=== PATIENT | female | born 1950 | race Caucasian/White ===

== ENCOUNTER 2017-05-21 15:00 | Emergency (ER) | payer MEDICARE, OTHER ==
[~2017-05-21] VITALS: Ht 154.9 cm; Wt 78.2 kg
[2017-05-21 15:34] VITALS: BP 171/89; PULSE 96; RESP 18; O2SAT 98
[2017-05-21 16:04] LABS: BASOPHILS % (AUTO) 0.1 % (0-3); EOSINOPHILS % (AUTO) 0.5 % (0-5); MONOCYTES % (AUTO) 7.1 % (4-12); Mean Corpuscular Hemoglobin 31.8 pg (27.0-35.0); NEUTROPHILS % (AUTO) 70.2 % (40-74); Platelet Count 175 bil/L (150-400)
[2017-05-21 16:54] LABS: TROPONIN T < 0.010 ug/L (0.0-0.011)
[2017-05-21 17:43] VITALS: BP 158/78; PULSE 85; RESP 20
--- NOTE | 2017-05-21 18:13 | ED.REPORT ---
HPI-Abd Pain F 40 and Over Date of Service May 21, 2017 ED Provider: Eros Liu MD Pt is a 67 y/o female w/ a hx of HTN, HLD, presenting to the ED c/o abdominal pain onset 3 days ago. She has been experiencing numbness/tingling of the pelvic region for a while and about 3 days ago she began to experience suprapubic abdominal pain which she thought to be related to a UTI. She had a urine culture resulted as negative. She has now been experiencing increasing diffuse abdominal cramping for 3 days. The patient's sister was recently diagnosed with stage IV colon cancer which made her concern even more-so for her symptoms. Pt denies fever, chills, diaphoresis, nausea, vomiting, abnormal diarrhea, dysuria, SOB, CP. She has never experienced similar symptoms previously. The patient had a colonoscopy 15 years ago. Her only surgery was a uterine fibroid removal. Nursing Notes Stated Complaint: STOMACH & BACK PAIN Chief Complaint: Female Abdominal Pain Nursing Notes Reviewed: Yes (Myze, [employer] not reconcled) Allergies: Coded Allergies: Penicillins (Verified Allergy, Unknown, 05/21/17) Scheduled PRN Alprazolam (Alprazolam) 0.5 Mg Tablet 0.5 MG PO BID PRN PRN For Anxiety General Time Seen by MD: 18:12 Chief Complaint Abdominal pain Hx Obtained From: Patient Arrived By: Walk-in Sudden in Onset?: No Onset Occurred: 3 days ago Symptom Duration: Since onset Progression since Onset: Constant Location: : Diffuse Quality: Cramping, Painful Severity: Current: Moderate Severity: Maximum: Moderate Similar Sx Previous: No Past Medical History Past Medical History Diabetes Hypertension Edema Otherwise denies Past Surgical History Uterine fibroid tumor removal Smoking History Never Smoker Social History Alcohol Use: Denies alcohol use Ambulatory Status Independent Review of Systems Constitutional: Denies: Chills, Fever Respiratory: Denies: Non-productive cough, Shortness of breath Cardiovascular: Denies: Chest pain GI: Reports: Abdominal pain, Denies: Diarrhea, Nausea, Vomiting Female: Reports: Pelvic pain, Denies: Dysuria, Flank pain Complete sys rev & neg: except as marked. Skin: Denies Diaphoresis Physical Exam Vital Signs Vital Signs (First) Date Time Temp Pulse Resp B/P Pulse Ox O2 Delivery O2 Flow Rate FiO2 05/21/17 15:34 36.8 96 18 171/89 98 05/21/17 17:43 Room Air Initial VS: Reviewed, Vital signs normal (HTN) Head / Eyes: Atraumatic, Normocephalic, PERRL ENT: Mucous membranes moist, Conjunctiva normal, No scleral icterus Neck: Supple, Full range of motion Extremities: Vascular intact, Neuro intact, No swelling Skin: Warm, Dry, No cyanosis Neurologic: Alert, Oriented, Nonfocal Psychiatric: Mood/affect normal, Behavior normal, Normal thought content General/Constitutional: Awake, Alert, No acute distress, Well appearing, Cooperative, Not toxic appearing Respiratory / Chest: Breath sounds NL, Breath sounds = bilat, No respiratory distress, No rales, No rhonchi, No wheezing, No stridor Cardiovascular: Heart rate NL, Regular rhythm, Heart sounds NL, No murmurs Abdomen: Atraumatic, Soft, Non-tender, No guarding, No rebound, No distention, No palpable mass Back: Full range of motion, Painless range of motion Interpretation & Diagnostics Lab Results Interpretation Result Diagram: 05/21/17 1600 05/21/17 1600 Test 05/21/17 16:00 05/21/17 16:01 05/21/17 17:29 05/21/17 18:17 White Blood Count 9.2th/mm3 (3.8-10.1) Red Blood Count 4.72mil/mm3 (3.90-5.20) Hemoglobin 15.0g/dL (12.0-15.6) Hematocrit 43.9% (35.0-46.0) Mean Corpuscular Volume 93.0fL (81-100) Mean Corpuscular Hemoglobin 31.8pg (27.0-35.0) Mean Corpuscular Hemoglobin Concent 34.2% (32.0-37.0) Red Cell Distribution Width 12.8% (12.3-15.4) Platelet Count 175bil/L (150-400) Neutrophils (%) (Auto) 70.2% (40-74) Lymphocytes (%) (Auto) 21.9% (14-46) Monocytes (%) (Auto) 7.1% (4-12) Eosinophils (%) (Auto) 0.5% (0-5) Basophils (%) (Auto) 0.1% (0-3) Sodium Level 137mEq/L (134-144) Potassium Level 4.3mEq/L (3.5-5.2) Chloride Level 99mEq/L (97-108) Carbon Dioxide Level 22mmol/L (18-29) Blood Urea Nitrogen 7mg/dL (8-27) Creatinine 0.99mg/dL (0.57-1.00) Estimat Glomerular Filtration Rate 80mL/min (>59) Glucose Level 126mg/dL (60-99) Calcium Level 9.7mg/dL (8.5-10.1) Total Bilirubin 0.4mg/dL (0.0-1.2) Aspartate Amino Transf (AST/SGOT) 30U/L (0-50) Alanine Aminotransferase (ALT/SGPT) 30U/L (0-32) Alkaline Phosphatase 73U/L (25-165) Troponin T < 0.010ug/L (0.0-0.011) Total Protein 7.9g/dL (6.4-8.4) Albumin 4.2g/dL (3.4-5.0) Hold [place] Top Tube Received (Received) Hold Urine Received (Received) Urine Color [place] (YELLOW) Urine Appearance Clear (CLEAR,HAZY) Urine pH 5.0 (5.0-8.0) Urine Specific [place] 1.005 (1.003-1.035) Urine Protein Negativemg/dL (NEG,TRACE) Urine Glucose (UA) 100mg/dL (NEGATIVE) Urine Ketones 15mg/dL (NEGATIVE) Urine Occult Blood Negative (NEGATIVE) Urine Nitrite Positive (NEGATIVE) Urine Bilirubin Negative (NEGATIVE) Urine Urobilinogen 1.0mg/dL (NORMAL) Urine Leukocyte Esterase Small (NEGATIVE) Urine RBC 0-2/hpf (0-2) Urine WBC 0-5/hpf (0-5) Urine Epithelial Cells Few/hpf (NONE-MOD) Urine Crystals None seen (NONE SEEN) Urine Bacteria Few/hpf (NONE-FEW) Urine Hyaline Casts None/lpf (NONE) Urine Granular Casts None seen (NONE SEEN) Urine Waxy Casts None seen (NONE SEEN) Urine Red Blood Cell Casts None seen (NONE SEEN) Urine White Blood Cell Casts None seen (NONE SEEN) Urine Mucus None seen (None Seen) Urine Trichomonas None seen (NONE SEEN) Urine Yeast None (NONE SEEN) Urinalysis Comment None Urine Culture Reflexed Indicated Lab Results Interpretation: CBC nl CMP nl Troponin negative (and after 2 days of continuous symptoms, repeat markers not indicated) UA urine has trace leukocytes, but no white cells, and the patient just had a culture from her urine obtained 2 days ago with no gross today, this argues strongly against a formal urinary tract infection X-Ray Chest Interpretation Chest Xray Interpretation: IMPRESSION: 1. No acute cardiopulmonary disease. Dictated by: Hans Shah M.D. on 05/21/2017 at 19:14 Approved by: Hans Shah M.D. on 05/21/2017 at 19:15 View: Portable, 1 view Interpretation / Wet Read by: Interpret - Radiologist CT Abd / Pelvis Interpretation IMPRESSION: 1. No acute intra-abdominal abnormality. Specifically, no evidence of appendicitis. Dictated by: Hans Shah M.D. on 05/21/2017 at 19:59 Approved by: Hans Shah M.D. on 05/21/2017 at 20:01 Study type: Abdominal CT IV contrast Interpretation / Wet Read by: Interpret - Radiologist Re-Eval/Medical Decision Med Decision/Clinical Course This is a 67-year-old female whose sister was just diagnosed with colon CA, she has been involved with absent for suspected incredible stress, and now over the past 5-6 days she has developed increasing abdominal cramps. He is initially in the pelvis and she was seen at urgent care diagnosed with a possible UTI, started on Anaprox, but the culture returned negative-now she has developed cramps in the upper abdomen, rating to the back, a little bit of chest tightness any symptoms have been persistent for the past 2 days, increasingly worsened and she became increasingly concerned. She reports no fever, no nausea , or vomiting. She reports she been able to eat and drink. No diarrhea, no GI blood loss, no prior history of similar symptoms. She reports considerable component of anxiety as well. There is no exertional component On exam she appears well, but anxious. Her physical exam is normal with no marked tenderness. The patient's highly concerned, and a workup was pursued- particular given its his second visit with a chief concern the patient for underlying malignancy. Blood work was normal, EKG was normal, troponin was negative, CT abdomen and pelvis was negative. At this point a definitive etiology or dangerous cause was not identified. However the patient's highly reassured. She would like and did request an anxiolytic, and I have written for some when necessary alprazolam. Patient is discharged in improved condition. Routine precautions reviewed. She already has a plan to follow up with GI for severe colonoscopy for screening. It was explained that although she had CT imaging, precancerous condition such as polyps etc. are not usually identified in this technically ED workup which is focused on the dangerous etiologies, and that it is reasonable for her to continue to proceed with GI follow-up as she had original plan. Patient is discharged in good condition Source of Hx: Old records Re-Evaluation/Progress : Time of Eval: 20:28 Re-Evaluation/Progress Note: Pt rechecked. Discussed imaging/labs. Informed pt of plan for discharge. Pt understands and agrees with plan for discharge. F/U instructions and RTER warnings given. All questions addressed. Differential Diagnosis: Positive: Acute abdominal pain, Negative: Abdominal aortic aneurysm, Acute coronary syndrome, Angina / NE, Bowel obstruction, C. diff colitis, Cholangitis, Cholecystitis, Ectopic preg ruptured, Ectopic , Esophageal rupture, Gun shot wound abdomen, Malignancy, Pancreatitis, Peritonitis, Pyelonephritis, Stab wound abdomen, Trauma, abdominal Counseled Regarding: Diagnosis, Lab results, Need for follow-up, When/why to return to ED Discharge & Departure Primary Impression: Abdominal Pain Generalized Disposition: Home Discharge Condition All VS Reviewed: Yes Condition: Stable Additional Instructions: 1. Your blood tests, EKG, Chest Xray, and CT scan of the abdomen/pelvis were normal. 2. A dangerous cause of the symptoms was not identified. There are many conditions (e.g. viral infections) which can cause these symptoms and not be identified on our tests - most of these conditions are generally self-limiting and symptoms are expected to resolve with time. 3. Activities and diet as tolerated. 4. Call for an appointment with GI to schedule your colonoscopy. 5. If you develop new or worsening symptoms: fever, increasing pain, vomiting, etc... - return to the ED. 6. Take tylenol 1000mg up to three times a day as needed for cramping/ discomfort. Referrals: [facility] (PCP) [facility], Scribe Attestation Portions of this note were transcribed by Scot Villeda. I, Dr. Liu personally performed the history, physical exam and medical decision-making; I reviewed and confirmed the accuracy of the information in the transcribed note.185 Eros Liu MD May 21, 2017 18:13 SCOT VILLEDA May 21, 2017 18:42
[2017-05-21 18:35] LABS: APPEARANCE,URINE CLEAR (CLEAR,HAZY); COLOR,URINE ORANGE (YELLOW); OCCULT BLOOD,URINE NEGATIVE (NEGATIVE)
--- NOTE | 2017-05-21 19:16 | DRSVH ---
PROCEDURE: X-RAY CHEST ONE VIEW, PORTABLE ([id number]) INDICATIONS: Chest pain TECHNIQUE: One view of the chest was acquired. COMPARISON: None. FINDINGS: Surgical changes and devices: None. Lungs and pleura: No pleural effusions or pneumothorax. Lungs are clear. Mediastinum: Mediastinal contours appear normal. Heart size is normal. Bones and chest wall: No suspicious bony lesions. Overlying soft tissues appear unremarkable. IMPRESSION: 1. No acute cardiopulmonary disease. Dictated by: Hans Shah M.D. on 05/21/2017 at 19:14 Approved by: Hans Shah M.D. on 05/21/2017 at 19:15
[2017-05-21 19:19] VITALS: BP 156/86; PULSE 79; RESP 20; O2SAT 98
--- NOTE | 2017-05-21 20:02 | DRSVH ---
PROCEDURE: CT ABDOMEN AND PELVIS WITH CONTRAST ([id number]) INDICATIONS: Abdominal pain TECHNIQUE: After the administration of oral and intravenous contrast, 5 mm thick sections acquired from the diap hragms to the symphysis. 5 mm thick coronal and sagittal reformats were performed. For radiation do se reduction, the following was used: automated exposure control, adjustment of mA and/or kV accordi ng to patient size. COMPARISON: None. FINDINGS: Image quality: Excellent. ABDOMEN: Lung bases: Lung bases are clear. Heart size is normal. Solid organs: There is hypoattenuation of the liver compatible with fatty infiltration. The spleen is normal in size. The gallbladder appears within normal limits without calcified gallstones. Bilia ry system is non-dilated. Pancreas enhances normally. No adrenal nodules. Kidneys demonstrate no h ydronephrosis. Peritoneum and bowel: Stomach, small bowel, and colon loops are normal in caliber and wall thickness . The appendix is normal in appearance. No free fluid or air. Nodes and vessels: No retroperitoneal or mesenteric adenopathy. Aorta and inferior vena cava are no rmal in caliber. Miscellaneous: No ventral hernias. PELVIS: Genitourinary: Bladder wall thickness is normal. Miscellaneous: No inguinal hernias or adenopathy. Bones: No suspicious bony lesions. No vertebral body compression fractures. IMPRESSION: 1. No acute intra-abdominal abnormality. Specifically, no evidence of appendicitis. Dictated by: Hans Shah M.D. on 05/21/2017 at 19:59 Approved by: Hans Shah M.D. on 05/21/2017 at 20:01
[2017-05-21] MEDS ORDERED: ALPR0.5T8 PO (20:33)
[2017-05-21] MEDS ORDERED: ALPRAZolam 0.5 mg Tablet PO ONE (20:35)
[2017-05-21 20:52] VITALS: BP 150/80; PULSE 74; RESP 19; O2SAT 98
== END 2017-05-21 20:54 | disposition home or self-care (01) ==
LOC: SED 15:00
DX: R10.84 Generalized abdominal pain (principal); I10 Essential (primary) hypertension; E78.5 Hyperlipidemia, unspecified; E11.9 Type 2 diabetes mellitus without complications; Z87.42 Personal history of other diseases of the female genital tract; Z88.0 Allergy status to penicillin
CPT/HCPCS: 36415; 71010; 74177; 80053; 81000; 81025; 84484; 85025; 87086; 93005; 99285; Q9967

== ENCOUNTER 2017-06-23 13:49 | Emergency (ER) | payer MEDICARE, OTHER ==
[~2017-06-23] VITALS: Ht 154.9 cm; Wt 76.4 kg
[~2017-06-23 13:49] MED LIST: ALPR0.5T8 PO
[2017-06-23 14:10] VITALS: BP 172/94; PULSE 79; RESP 16; O2SAT 98
--- NOTE | 2017-06-23 16:41 | ED.REPORT ---
HPI-Abd Pain F 40 and Over Date of Service Jun 23, 2017 ED Provider: Carlos Monroy Pt is a 67 y/o female w/ a hx of DM, HTN, anxiety, presenting to the ED with multiple medical complaints. The patient's sister was diagnosed with metastatic colon cancer and the patient developed diarrhea and due to her concern for herself she went to see GI physician Dr. Tejada to schedule a colonoscopy. She then developed 4-5 days of constipation and went back to her PCP who started her on Citracal and mild of magnesia with good relief. Now she is concerned about hypokalemia because she had a fairly severe episode of it 30 years ago. She also says she has been experiencing "vaginal cramping" for a few months which has been thoroughly worked up with no definitive diagnosis. She denies vaginal or rectal bleeding, vaginal discharge. Her only sexual partner is her of 27 years. Nursing Notes Stated Complaint: ABDOMINAL PAIN,LOW POTASSIUM Chief Complaint: Female Abdominal Pain Nursing Notes Reviewed: Yes Allergies: Coded Allergies: honey (Verified Allergy, Intermediate, THROAT SWELLS, 06/23/17) Penicillins (Verified Allergy, Unknown, 06/23/17) Scheduled PRN Alprazolam (Alprazolam) 0.5 Mg Tablet 0.5 MG PO BID PRN PRN For Anxiety General Time Seen by MD: 16:11 Chief Complaint Other (multiple) Hx Obtained From: Patient Arrived By: Walk-in Sudden in Onset?: No Onset Occurred: More than a week ago... (2 months) Symptom Duration: Intermittent Progression since Onset: Intermittent Location: : Pelvis Quality: Painful Severity: Current: Mild Severity: Maximum: Moderate Recent Healthcare: Recent testing, Previous diagnosis, Prior workup Similar Sx Previous: Yes Past Medical History Past Medical History Notes: GI: Dr. Tejada Past Medical History Anxiety Diabetes Hypertension Edema Past Surgical History Uterine fibroid tumor removal Smoking History Never Smoker Social History Alcohol Use: Denies alcohol use Ambulatory Status Independent Review of Systems Constitutional: Denies: Fever GI: Reports: Constipation, Diarrhea, Denies: Bloody/tarry stool Female: Reports: Pelvic pain, Denies: Vaginal bleeding - abnl, Vaginal discharge Complete sys rev & neg: except as marked. Physical Exam Vital Signs Vital Signs (First) Date Time Temp Pulse Resp B/P Pulse Ox O2 Delivery O2 Flow Rate FiO2 06/23/17 14:10 36.3 79 16 172/94 98 Room Air Initial VS: Reviewed, Vital signs abnormal Head / Eyes: Atraumatic, Normocephalic ENT: Mucous membranes moist, Conjunctiva normal Neck: Supple, Full range of motion Extremities: Vascular intact, Neuro intact, No swelling Skin: Warm, Dry, No cyanosis Neurologic: Alert, Oriented, Nonfocal Psychiatric: Mood/affect normal, Behavior normal, Normal thought content General/Constitutional: Awake, Alert, No acute distress, Well appearing, Cooperative, Not toxic appearing Respiratory / Chest: Breath sounds NL, Breath sounds = bilat, No respiratory distress, No rales, No rhonchi, No wheezing, No retractions, No stridor Cardiovascular: Heart rate NL, Regular rhythm, Heart sounds NL, No murmurs Abdomen: Atraumatic, Soft, Non-tender, No guarding, No rebound, No distention, No palpable mass Back: Full range of motion, Painless range of motion Interpretation & Diagnostics Lab Results Interpretation Result Diagram: 06/23/17 1717 06/23/17 1717 Test 06/23/17 16:13 06/23/17 17:17 06/23/17 17:18 Hold Urine Received (Received) White Blood Count 9.9th/mm3 (3.8-10.1) Red Blood Count 4.44mil/mm3 (3.90-5.20) Hemoglobin 14.2g/dL (12.0-15.6) Hematocrit 41.1% (35.0-46.0) Mean Corpuscular Volume 92.6fL (81-100) Mean Corpuscular Hemoglobin 32.0pg (27.0-35.0) Mean Corpuscular Hemoglobin Concent 34.5% (32.0-37.0) Red Cell Distribution Width 12.6% (12.3-15.4) Platelet Count 174bil/L (150-400) Neutrophils (%) (Auto) 66.2% (40-74) Lymphocytes (%) (Auto) 25.1% (14-46) Monocytes (%) (Auto) 6.7% (4-12) Eosinophils (%) (Auto) 1.6% (0-5) Basophils (%) (Auto) 0.2% (0-3) Sodium Level 136mEq/L (134-144) Potassium Level 4.2mEq/L (3.5-5.2) Chloride Level 98mEq/L (97-108) Carbon Dioxide Level 23mmol/L (18-29) Blood Urea Nitrogen 10mg/dL (8-27) Creatinine 0.95mg/dL (0.57-1.00) Estimat Glomerular Filtration Rate 84mL/min (>59) Glucose Level 120mg/dL (60-99) Calcium Level 9.9mg/dL (8.5-10.1) Magnesium Level 2.0mg/dL (1.6-2.6) Total Bilirubin 0.3mg/dL (0.0-1.2) Aspartate Amino Transf (AST/SGOT) 34U/L (0-50) Alanine Aminotransferase (ALT/SGPT) 40U/L (0-32) Alkaline Phosphatase 72U/L (25-165) Total Protein 7.6g/dL (6.4-8.4) Albumin 4.1g/dL (3.4-5.0) Lipase 37U/L (13-60) Hold [place] Top Tube Received (Received) Re-Eval/Medical Decision Med Decision/Clinical Course NO Acute findings on labs, abdominal exam reassuring. Patient is additionally concerned with ongoing and chronic pelvic pain however declines any particular evaluation of this. Community Outreach Manager and follow-up precautions given Re-Evaluation/Progress : Time of Eval: 17:57 Re-Evaluation/Progress Note: Pt rechecked. I offered to perform an external genitalia and pelvic speculum exam which she declined both. Informed pt of plan for discharge. Pt understands and agrees with plan for discharge. F/U instructions and RTER warnings given. All questions addressed. Counseled Regarding: Diagnosis, Lab results, Need for follow-up, When/why to return to ED Discharge & Departure Primary Impression: Chronic female pelvic pain Disposition: Home Discharge Condition All VS Reviewed: Yes Condition: Stable Patient Instructions: Pelvic Pain in Women (ED) Additional Instructions: The cause of your symptoms is unclear, but does not seem to be emergent at this time. Labs were reassuring. I recommend you contact your primary care doctor to further discuss more evaluation. Return to the emergency department if you develop high fever, persistent vomiting, uncontrolled pain, or for other concerning symptoms. Referrals: Maria Victoria Tejada MD Scribe Attestation Portions of this note were transcribed by Scot Villeda. I, Dr. Monroy personally performed the history, physical exam and medical decision-making; I reviewed and confirmed the accuracy of the information in the transcribed note. copies to: Maria Victoria Tejada MD, Timothy Raul JOHNSON Jun 23, 2017 16:41 SCOT VILLEDA Jun 23, 2017 16:49
[2017-06-23 17:34] LABS: BASOPHILS % (AUTO) 0.2 % (0-3); EOSINOPHILS % (AUTO) 1.6 % (0-5); MONOCYTES % (AUTO) 6.7 % (4-12); Mean Corpuscular Volume 92.6 fL (81-100); NEUTROPHILS % (AUTO) 66.2 % (40-74); Platelet Count 174 bil/L (150-400)
[2017-06-23 18:18] VITALS: BP 155/87; PULSE 75; RESP 16; O2SAT 98
[2017-06-26] MEDS ORDERED: METF500T4 PO (15:05)
[2017-06-26] MEDS ORDERED: HYDR25TA4 PO (15:05)
[2017-06-26] MEDS ORDERED: LOSA50TA37 PO (15:05)
== END 2017-06-23 18:19 | disposition home or self-care (01) ==
LOC: SED 13:49
DX: R10.2 Pelvic and perineal pain (principal); G89.29 Other chronic pain; E11.9 Type 2 diabetes mellitus without complications; I10 Essential (primary) hypertension; F41.9 Anxiety disorder, unspecified; Z88.0 Allergy status to penicillin; Z91.030 Bee allergy status

== ENCOUNTER → 2017-06-26 | Day surgery (SDC) | payer MEDICARE, OTHER ==
[~2017-06-26] VITALS: Ht 154.9 cm; Wt 74.4 kg
[~2017-06-26] MED LIST changes: +HYDR25TA4 PO; +LOSA50TA37 PO; +METF500T4 PO; +Sodium Chloride LOK Flush 10 mL Syringe IV PRN; +fentaNYL-PF 50 mCg/mL 2 mL Inj IVPUSH PRN
[2017-06-26 14:56] VITALS: BP 147/74; PULSE 82; RESP 17; O2SAT 100
[2017-06-26] MEDS: 0.9% Sodium Chloride 1,000 ML IV SCH ×2 (15:12→15:46)
[2017-06-26 15:58] VITALS: BP 110/59; PULSE 68; RESP 16; O2SAT 97
[2017-06-26 16:08] VITALS: BP 112/59; PULSE 71; RESP 16; O2SAT 97
[2017-06-26 16:18] VITALS: BP 102/57; PULSE 69; RESP 16; O2SAT 97
--- NOTE | 2017-06-26 16:26 | ENDO ---
[address] [address] ENDOSCOPY PROCEDURE PATIENT: DAGO TSE : 1950 MR#: [id number] ADMIT: 06/26/2017 JOB ID: [id number] DATE: 06/26/2017 PROCEDURE: Colonoscopy. INDICATIONS: Change in bowel habits. Patient's ASA classification is II. Mallampati score is II. MEDICATIONS: Versed 4 mg, fentanyl 100 mcg. INSTRUMENT USED: [id number]-[id number] PREPARATION QUALITY: Was good. PROCEDURE DETAILS: After informed consent was obtained, the patient was brought into the GI suite, where she was placed on oxygen via nasal cannula and monitored with continuous pulse oximeter, telemetry, and blood pressure monitoring. A time-out was performed. Then, she was placed in a left lateral decubitus position and medications were administered for sedation. A digital rectal exam was performed which was unremarkable. The colonoscope was then inserted into the rectum and advanced under direct visualization to the cecum, which was identified by the presence of the ileocecal valve and appendiceal orifice. Once the cecum was reached, the colonoscope was withdrawn back into the rectum as the mucosa and lumen were examined. In the rectum, retroflexion was performed. Following retroflexion, remaining air in the rectum was suctioned, and procedure was completed. FINDINGS: 1. In the cecum, there was a 6 mm sessile polyp that was removed with a hot snare. 2. The remainder the colon exam was otherwise unremarkable. 3. Multiple random biopsies were obtained throughout the entire colon. IMPRESSION: Cecal polyp. Otherwise normal exam from rectum to cecum. RECOMMENDATIONS: 1. Follow up in GI clinic in 2-4 weeks. 2. Avoid NSAIDs and anticoagulants for 72 hours. COMPLICATIONS: None. ESTIMATED BLOOD LOSS: Less than 5 mL. CC: LEWIS Law [place].
[2017-06-26 16:28] VITALS: BP 106/58; PULSE 68; RESP 16; O2SAT 99
[2017-06-26 16:38] VITALS: BP 110/71; PULSE 67; RESP 16; O2SAT 99
--- NOTE | 2017-07-01 16:26 | PATH ---
SURGICAL PATHOLOGY Attending Physician:Valery Wesley CASE STATUS: Signed Out PATIENT NAME: DAGO TSE PID: [id number] : 1950 DATE COLLECTED:06/26/2017 00:00 SPECIMEN: 1: Colon, Polyp 2: Colon, Biopsy CLINICAL HISTORY: 1). CECAL POLYP 2). RANDOM COLON BIOPSY FINAL DIAGNOSIS: 1. Cecal Polyp, Polypectomy: Tubular adenoma. 2. Random Colon, Biopsies: Colonic mucosa with no diagnostic abnormality. Negative for active or microscopic colitis. Negative for granulomata, dysplasia or malignancy. ICD10: R19.4 D12.0 GROSS DESCRIPTION: Received two formalin-filled containers, each labeled with the patient's name. 1. Received in formalin, labeled with the patient's name and "cecal polyp" is one fragment of grady soft tissue measuring 0.6 x 0.5 x 0.3 cm. The fragment is bisected and totally submitted in cassette 1A. 2. Received in formalin, labeled with the patient's name and "random colon biopsies" are multiple fragments of grady soft tissue ranging from 0.1 x 0.1 x 0.1 cm to 0.4 x 0.1 x 0.1 cm. The fragments are totally submitted in cassette 2A. [id number]) ICD-9 CODES: CPT CODES: 1: 94570 2: 62093 Electronically Signed Out Eros Valdivia MD, Ph.D. [facility], [place] [address] Technical component performed at [facility], [facility] [address], [place], [address]
== END | disposition home or self-care (01) ==
LOC: END 00:33
PROVIDERS: ATTEND Internal Medicine Gastroenterology
DX: D12.0 Benign neoplasm of cecum (principal); R19.4 Change in bowel habit; Z79.84 Long term (current) use of oral hypoglycemic drugs; Z79.899 Other long term (current) drug therapy